=== PATIENT | male | born 2000 | race Caucasian/White ===

== ENCOUNTER 2022-04-15 13:08 | Emergency (ER) | payer OTHER ==
[~2022-04-15] VITALS: Ht 180.3 cm; Wt 77.7 kg
[2022-04-15 16:13] LABS: GC DNA AMPLIFICATION POSITIVE (NEGATIVE)
[2022-04-15] MEDS ORDERED: LIDOCAINE 1% SDV 5ML VIAL DILUENT ONE (16:55)
[2022-04-15] MEDS ORDERED: cefTRIAXone 500MG VIAL (J0696 PER 250MG) IM ONE (16:55)
[2022-04-15 18:18] VITALS: BP 155/74
== END 2022-04-15 18:20 | disposition home or self-care (01) ==
LOC: M ED 13:08
DX: A54.9 Gonococcal infection, unspecified (principal); F17.210 Nicotine dependence, cigarettes, uncomplicated
CPT/HCPCS: 87070; 87205; 87430; 87810; 87850; 96372; 99283; J0696

== ENCOUNTER 2022-04-22 10:23 | Emergency (ER) | payer OTHER ==
[~2022-04-22] VITALS: Ht 177.8 cm; Wt 81.1 kg
[2022-04-22 12:56] VITALS: BP 121/70
[2022-04-22 13:08] LABS: GC DNA AMPLIFICATION POSITIVE (NEGATIVE)
[2022-04-22] MEDS ORDERED: DOXY-443 PO (13:15)
== END 2022-04-22 13:00 | disposition home or self-care (01) ==
LOC: M ED 10:23
DX: Z20.2 Contact with and (suspected) exposure to infections with a predominantly sexual mode of transmission (principal)